=== PATIENT | female | born 1940 | race Caucasian/White ===

== ENCOUNTER 2020-05-08 19:57 | Inpatient (IN) | payer MEDICARE, BC ==
[~2020-05-08] VITALS: Ht 167.6 cm; Wt 66.3 kg
[2020-05-08] MEDS ORDERED: FENO90CA PO (20:30)
[2020-05-08] MEDS ORDERED: IBUP-1223 PO (20:30)
[2020-05-08] MEDS ORDERED: EPIN0.3P3 IM (20:30)
[2020-05-08] MEDS ORDERED: OMEG1CAP34 PO (20:30)
[2020-05-08] MEDS ORDERED: FOLI0.8T5 PO (20:30)
[2020-05-08] MEDS ORDERED: CYAN50005 PO (20:30)
[2020-05-08] MEDS ORDERED: ATEN25TA PO (20:30)
[2020-05-08] MEDS ORDERED: ASPI81TA45 PO (20:30)
[2020-05-08] MEDS ORDERED: BIMA2.5D OP (20:30)
[2020-05-08] MEDS ORDERED: BETA15CR5 TP (20:30)
[2020-05-08] MEDS ORDERED: LOSA50TA2 PO (20:30)
[2020-05-08] MEDS ORDERED: CHOL10003 PO (20:30)
[2020-05-08] MEDS ORDERED: AMLO-211 PO (20:30)
[2020-05-08] MEDS ORDERED: LEVO100T PO (20:30)
--- NOTE | 2020-05-08 20:35 | NUR ---
PATIENT ARRIVES FROM [facility] FOR OCCULAR MIGRAINE COMPLAINT AND BECOMING CONFUSED WHEN SHE WAS DRIVNG TO [place]. SHE HAS A HX OF OCCULAR MIGRAINES. THIS ONE LASTED 10 DAYS AND STATES SHE HAS JUST FINISHED HER COVID-19 VACCINES AND WONDERING IF THIS COULD HAVE CAUSED THIS. [facility]SM INTACT. A&OX4. CALL GARCIA IN [place]. SAFETY MAINTAINED. WILL CONTINUE TO MONITOR.
--- NOTE | 2020-05-08 20:52 | NUR ---
ASSISTED PATIENT UP TO [facility]. STEADY GAIT. REQUESTING SOMETHING TO DRINK. FLUSHED BILATERAL AC IV'S. + BLOOD RETURN ON BOTH. WILL CONTINUE TO MONITOR
[2020-05-08] MEDS ORDERED: ASPIRIN 325 MG TABLET PO ONE (21:30)
--- NOTE | 2020-05-08 21:43 | NUR ---
I UPDATED DAUGHTER, MERLE, WITH PATIENT'S CONSENT AT THIS TIME. I SPENT ~ 20 MINUTES ON THIS PHONE CALL
[2020-05-08] MEDS ORDERED: ASPIRIN 325 MG TABLET ONE (21:55)
--- NOTE | 2020-05-08 22:08 | NUR ---
REPORT GIVEN TO NATHANAEL FERGUSON
--- NOTE | 2020-05-08 22:11 | NUR ---
DID NOT COMPLETE FULL STROKE SCALE PATIENT IS NOT SHOWING SIGNS OF STROKE AT THIS TIME, DID LIMITED STROKE SCALE ASSESSMENT
[2020-05-08] MEDS ORDERED: ACETAMINOPHEN 650 MG/20.3 ML UDC PO PRN (22:30)
[2020-05-08] MEDS ORDERED: LABETALOL 5MG/ML, 20ML IV PRN (22:30)
[2020-05-08] MEDS ORDERED: ONDANSETRON 2MG/ML, 2ML IVPush PRN (22:30)
[2020-05-08 22:47] VITALS: BP 158/83
[2020-05-08] MEDS ORDERED: [UNRECOGNIZED DRUG - OTHER] PO (23:31)
[2020-05-08] MEDS ORDERED: zquil PO (23:31)
[2020-05-08] MEDS ORDERED: CALC200T3 PO (23:31)
[2020-05-08] MEDS: AMLODIPINE 5 MG TABLET PO SCH (23:44)
[2020-05-08] MEDS: ATORVASTATIN 40 MG TABLET PO SCH (23:44)
[2020-05-09] MEDS ORDERED: IBUP200T64 PO (00:22)
[2020-05-09 02:00] VITALS: BP 154/67
[2020-05-09] MEDS: LEVOTHYROXINE 100 MCG TABLET PO SCH (05:16)
[2020-05-09 06:06] LABS: ANION GAP 9 mmol/L (5-15); CALCIUM 8.9 mg/dL (8.5-10.1); CHLORIDE 109 mmol/L (98-107)
[2020-05-09 06:12] LABS: CHOL/HDL RATIO 2.9; CHOLESTEROL, TOTAL 98 mg/dL (140-239); CREATININE 1.07 mg/dL (0.55-1.02); HDL CHOL % 35 % (28-40); HDL CHOLESTEROL (DIRECT) 34 mg/dL (40-60); LDL CHOLESTEROL,CALCULATED 34 mg/dL (54-169); TRIGLYCERIDES 148 mg/dL (50-200); VLDL CHOLESTEROL 30 mg/dL (0-25)
[2020-05-09 06:38] VITALS: BP 125/74
[2020-05-09] MEDS: FENOFIBRATE 145 MG TABLET PO SCH ×2 (09:00→09:51)
[2020-05-09] MEDS ORDERED: ASPIRIN 81 MG TABLET CHEW PO/NG SCH (09:00)
[2020-05-09] MEDS ORDERED: LOSARTAN 50MG TABLET PO SCH (09:00)
[2020-05-09 10:17] VITALS: BP 147/79
[2020-05-09] MEDS ORDERED: LOSARTAN 50MG TABLET PO PRN (10:30)
[2020-05-09 11:44] VITALS: BP 129/61
[2020-05-09] MEDS: CLOPIDOGREL 75 MG TABLET PO SCH (14:01)
[2020-05-09 19:17] VITALS: BP 151/71
[2020-05-09] MEDS: AMLODIPINE 5 MG TABLET PO SCH (20:27)
[2020-05-09] MEDS: ATORVASTATIN 40 MG TABLET PO SCH (20:27)
[2020-05-09] MEDS ORDERED: MELATONIN 5 MG TABLET PO SCH (21:00)
[2020-05-10 01:37] VITALS: BP 165/75
[2020-05-10 05:43] LABS: BASOPHILS % (AUTO) 1 % (0-1); EOSINOPHILS % (AUTO) 4 % (1-7); LYMPHOCYTES % (AUTO) 29 % (22-44); MEAN CORPUSCULAR HEMOGLOBIN 31.5 pg (27.0-34.8); MEAN CORPUSCULAR HGB CONC 35.1 g/dL (32.4-35.8); MEAN PLATELET VOLUME 8.6 fL (7.4-10.4); MONOCYTES % (AUTO) 10 % (2-9); NEUTROPHILS % (AUTO) 57 % (42-75); PLATELET COUNT 213 x10^3/uL (130-400); RED BLOOD COUNT 4.25 x10^6/uL (3.82-5.3); RED CELL DISTRIBUTION WIDTH 14.7 % (9.6-15.2)
[2020-05-10 05:46] LABS: MD NO
[2020-05-10 05:55] LABS: ANION GAP 8 mmol/L (5-15); CHLORIDE 110 mmol/L (98-107)
[2020-05-10] MEDS: LEVOTHYROXINE 100 MCG TABLET PO SCH (06:19)
[2020-05-10 06:22] VITALS: BP 189/69
[2020-05-10] MEDS ORDERED: hydrALAzine 20 MG/ML, 1ML IV PRN (06:30)
[2020-05-10] MEDS ORDERED: LOSARTAN 50MG TABLET ONE (06:43)
[2020-05-10] MEDS ORDERED: CLOP75TA PO ×3 (08:12→08:14)
[2020-05-10] MEDS: CLOPIDOGREL 75 MG TABLET PO SCH (08:32)
[2020-05-10] MEDS: FENOFIBRATE 145 MG TABLET PO SCH (08:33)
[2020-05-10] MEDS ORDERED: LOSARTAN 50MG TABLET PO SCH (09:00)
[2020-05-10] MEDS ORDERED: ASPIRIN 81 MG TABLET CHEW PO SCH (09:00)
[2020-05-10] MEDS ORDERED: OMNIPAQUE 350 MG/ML, 75ML BOTTLE ONE (11:02)
[2020-05-10 14:00] VITALS: BP 151/68
== END 2020-05-10 18:26 | disposition home or self-care (01) | DRG 64 ==
LOC: ED 20:50 → EDIP 20:55 → ED 21:06 → 4EST 22:36
PROVIDERS: ADMIT Family Medicine; ATTEND Internal Medicine
DX: I63.9 Cerebral infarction, unspecified (principal); N17.0 Acute kidney failure with tubular necrosis; I50.32 Chronic diastolic (congestive) heart failure; I65.21 Occlusion and stenosis of right carotid artery; E78.1 Pure hyperglyceridemia; E03.9 Hypothyroidism, unspecified; G43.109 Migraine with aura, not intractable, without status migrainosus; I11.0 Hypertensive heart disease with heart failure; G43.909 Migraine, unspecified, not intractable, without status migrainosus; R00.1 Bradycardia, unspecified; I34.1 Nonrheumatic mitral (valve) prolapse; H40.9 Unspecified glaucoma; I66.21 Occlusion and stenosis of right posterior cerebral artery; Z79.82 Long term (current) use of aspirin; Z80.0 Family history of malignant neoplasm of digestive organs; Z80.3 Family history of malignant neoplasm of breast; Z87.891 Personal history of nicotine dependence
CPT/HCPCS: 36415; 70498; 80048; 80061; 85025; 93005; 93306; 93880; 99285; G0378; Q9967; 92523-GN; J0360